=== PATIENT | female | born 1975 | race Two or more races ===

== ENCOUNTER 2017-12-23 05:41 | Day surgery (SDC) | payer OTHER ==
[2017-12-23] MEDS ORDERED: ACETAMINOPHEN500 M1 PO (10:26)
[2017-12-23] MEDS ORDERED: CIPRO500 MG PO (10:26)
== END 2017-12-23 14:50 | disposition home or self-care (01) ==
LOC: CIR.AMB 05:41
DX: N92.0 Excessive and frequent menstruation with regular cycle (principal)